=== PATIENT | female | born 1985 | race Caucasian/White ===

== ENCOUNTER 2017-07-17 10:26 | Inpatient (IN) | payer MEDICAID ==
[2017-07-17] MEDS ORDERED: TERBUTALINE SULFATE 1 MG/ML VIAL IV PRN (10:46)
[2017-07-17] MEDS ORDERED: OXYTOCIN 20 UNIT in LR 1,000 ML IV PRN (10:46)
[2017-07-17] MEDS ORDERED: EPSOM SALT 454 GM TP PRN (10:46)
[2017-07-17] MEDS ORDERED: LR 1,000 ML IV PRN (10:46)
[2017-07-17] MEDS ORDERED: OLIVE OIL 118 ML BTL MISC PRN (10:46)
[2017-07-17] MEDS ORDERED: OXYTOCIN 10 UNIT/ML VIAL ONE ×2 (10:58→13:35)
[2017-07-17] MEDS ORDERED: MISOPROSTOL 200 MCG TAB PR ONE (11:00)
[2017-07-17] MEDS ORDERED: LIDOCAINE 1% 300 MG/30 ML SDV ONE (11:00)
[2017-07-17] MEDS ORDERED: MISOPROSTOL 200 MCG TAB ONE (11:11)
--- NOTE | 2017-07-17 11:37 | OBDEL ---
Info Type: Vaginal Presentation at Delivery: Vertex L&D Analgesia/Anesthesia Type: Local GBS+: No - Hospital Course Intrapartum: Began gumaro regularly. Srom clear fluid 1048. pp hemorrage 600cc cytotec 800mcg. pitocin 10mu im. Iv begun after delivery 20mu . 07/17/17 11:34 Indications for Delivery: Spontaneous Labor, SROM Vaginal Delivery - Delivery Provider Delivery Physician/CNM: Lyubov Demarco Proctoring Provider: Nimo Rizvi - Labor and Delivery Onset of Contractions Date: 07/17/17 Onset of Contractions Time: 09:00 Onset of Contractions Type: Spontaneous Rupture of Membranes Date: 07/17/17 Rupture of Membranes Time: 10:48 Rupture of Membranes Type: Spontaneous Amniotic Fluid Color: Clear Dilation Complete Date: 07/17/17 Dilation Complete Time: 10:40 Placenta Delivery Date: 07/17/17 Placenta Delivery Time: 11:08 Total Hours of Labor: 2 Laceration: 1st Degree Repair: 3-0, Vicryl Vaginal Sponge Count Correct: Yes Vaginal Needle Count Correct: Yes Vaginal Sweep Performed: Yes EBL: 600 Delivery Events: None, Post Hemorrhage Data Farooq Delivery Date: 07/17/17 Delivery Time: 10:53 KEY: 07/21/17 Gestational Age: 39 week(s) and 3 day(s) Sex of Infant: Female Score (1 Min): 8 Score (5 Min): 9 ICD10 Worksheet Patient Problems: Problems Problem Status Onset Normal vaginal delivery Acute - ICD10 Problem Qualifiers (1) Normal vaginal delivery
[2017-07-17] MEDS: IBUPROFEN 600 MG TAB PO PRN ×3 (11:40→23:18)
[2017-07-17] MEDS ORDERED: HYDROCORTISONE 0.5% CREAM TP PRN (11:41)
[2017-07-17] MEDS ORDERED: HYDROCODONE/APAP 5/325 TAB PO PRN (11:41)
[2017-07-17] MEDS ORDERED: ACETAMINOPHEN 325 MG TAB PO PRN (11:41)
[2017-07-17] MEDS ORDERED: SIMETHICONE 80 MG TAB CHEW PO PRN (11:41)
[2017-07-17] MEDS ORDERED: DOCUSATE SODIUM 100 MG CAP PO PRN (11:41)
[2017-07-17 11:43] LABS: % IMMATURE GRANULYOCYTES 0.9 % (0.0-1.1); ABSOLUTE IMMATURE GRANULOCYTES 0.09 10^3/uL (0.00-0.10); ADD DIFF? NO; ADD MORPH? NO; ADD SCAN? NO; ATYPICAL LYMPHOCYTE FLAG 0 (0-99); FRAGMENT RBC FLAG 0 (0-99); HEMATOCRIT 39.1 % (38.0-47.0); HEMOGLOBIN 13.9 g/dL (12.6-16.3); LEFT SHIFT FLG 0 (0-99); LIPEMIA HEMOLYSIS FLAG 90 (0-99); MEAN CELL HEMOGLOBIN 31.2 pg (27.9-34.1); MEAN CELL HEMOGLOBIN CONCENTR. 35.5 g/dL (32.4-36.7); MEAN CELL VOLUME 87.7 fL (81.5-99.8); MEAN PLATELET VOLUME 11.4 fL (8.7-11.7); PLATELET CLUMPS FLAG 20 (0-99); PLATELET COUNT 203 10^3/uL (150-400); RED BLOOD CELL COUNT 4.46 10^6/uL (4.18-5.33); RED CELL DISTRIBUTION WIDTH 12.6 % (11.5-15.2)
--- NOTE | 2017-07-17 12:14 | GHP ---
[f rep st] HISTORY AND PHYSICAL DATE OF ADMISSION: 07/17/2017 HISTORY OF PRESENT ILLNESS: The patient is a 31-year-old, 3, para 1, with an EDC of 07/21/20 17 which gives her a gestational age of 39 and 3/7 weeks, who comes in with complaint of regular cont ractions since 9 a.m. On admit, patient was 7-8 cm, 100% effaced, 0 station with bag of ray intact . The patient has been routinely seeing [facility]. She was a 20 week transfer from [facility] [place]. MEDICAL HISTORY: Benign. SURGICAL HISTORY: Noncontributory. GYNECOLOGICAL HISTORY: The patient has had a previous LEEP. PREVIOUS HISTORY: History of PIH with induction of labor at 37 weeks. History of retained placenta. Present , patient is rubella nonimmune. SOCIAL HISTORY: Patient is to [place]. One child at home. Denies drug use. Denies tobacco u se. MEDS: Taking vitamins with DHA. ALLERGIES: NKDA. LABS: Patient is O positive. Antibody negative. RPR is nonreactive. Rubella is nonimmune. Hepati tis is negative. HIV is negative. PHYSICAL EXAMINATION: GENERAL: Patient is awake, alert, oriented x3. LUNGS: Clear bilaterally. A BDOMEN: Bowel sounds are positive in all 4 quadrants. EXTREMITIES: DTRs are 1+ bilaterally. No cl onus bilaterally Homans' sign is negative bilaterally. PLAN: 1. GBS is negative. 2. Spontaneous rupture of membranes on entrance into the room with clear fluid. 3. Expectant management of labor at patient's request. Has requested no IV since patient was going so fast, complied. All other labs were within normal limits. Initial hematocrit was 39.1. /[id number]/MODL
[2017-07-17 12:20] LABS: ALANINE AMINOTRANSFERASE 26 IU/L (9-52); ASPARTATE AMINOTRANSFERASE 21 IU/L (14-46); BILIRUBIN,TOTAL 0.5 mg/dL (0.1-1.4); BILIRUBIN-CONJUGATED 0.1 mg/dL (0.0-0.5); BILIRUBIN-UNCONJUGATED 0.4 mg/dL (0.0-1.1); CREATININE 0.9 mg/dL (0.6-1.0); GLOMERULAR FILTRATION RATE > 60; LACTATE DEHYDROGENASE 559 IU/L (313-618); URIC ACID 6.4 mg/dL (2.5-6.8)
[2017-07-17] MEDS ORDERED: OXYTOCIN 20 UNIT in LR 1,000 ML IV SCH (14:00)
--- NOTE | 2017-07-17 14:17 | SOAPPROG ---
SOAP Progress Note Assessment/Plan: Assessment:total bleeding since delivery 1200cc placenta sent to path for possible abruption. Consult with dr. Rizvi hold methergine po bimanual again from 900 cc loss to 1200cc loss with second bimanual antibiotic ancef 2 gms x 1 dose now iv #2 second bag of pitocin at 125cc /hour with 20u pitocin Plan:observe 07/17/17 14:12 Subjective: Continued bleeding after delivery. 300cc more per nurse. Weighed. Denies dizziness. Feeling ok. Objective: Laboratory Results 07/17/17 11:20 07/17/17 11:20 ICD10 Worksheet Patient Problems: Problems Problem Status Onset Normal vaginal delivery Acute - ICD10 Problem Qualifiers (1) Normal vaginal delivery
[2017-07-17] MEDS ORDERED: ceFAZolin 2 GM/DEXTROSE 100 ML IV ONE (14:18)
[2017-07-17] MEDS ORDERED: fentaNYL 100 MCG/2 ML INJ IVP ONE ×2 (14:41→17:00)
[2017-07-17] MEDS ORDERED: fentaNYL 100 MCG/2 ML INJ ONE (14:42)
[2017-07-17] MEDS ORDERED: METHYLERGONOVINE MAL 0.2 MG/ML INJ ONE (14:59)
[2017-07-17] MEDS ORDERED: METHYLERGONOVINE MAL 0.2 MG/ML INJ IM ONE (15:00)
--- NOTE | 2017-07-17 15:15 | SOAPPROG ---
SOAP Progress Note Assessment/Plan: Assessment: s/p with PP bld and retained POCs Plan: s/p PP DnC for retained tissue. jacquie with fentenyl....total EBL 1500ml and pt tachy with mild nausea. 07/17/17 15:11 Subjective: Pt happy with baby and has been BF but starting to get light headed - better with lying down, much better with Fentenyl. Jacquie currettage well. Objective: Laboratory Results 07/17/17 11:20 07/17/17 11:20 PP DnC pt given 50mcg of Fen IV push and is receiving IV pitocin. B/P 110s/70s and dropped to 80s/50s after procedure. On ultrasound, the upper endometrium appears empty down to ABDOULAYE - no obvious RPOCs. Manual exploration reveals clots in ABDOULAYE and vaginal vault - approx 300ml. currettage with Philip's currette and no tissue obtained up high but clots removed in ABDOULAYE. small piece of placental tissue obtained manually out of cervix. Following this, pt had small flow of blood. Pt is feeling better after IV fluids and B/P 112/65 and pulse 86. ICD10 Worksheet Patient Problems: Problems Problem Status Onset Normal vaginal delivery Acute Retained placenta parts or membranes, condition Acute S/P dilation and curettage Acute - ICD10 Problem Qualifiers (1) Retained placenta parts or membranes, condition (2) S/P dilation and curettage
[2017-07-17] MEDS ORDERED: METHYLERGONOVINE MAL 0.2 MG TAB PO SCH (18:00)
[2017-07-17] MEDS: METHYLERGONOVINE MAL 0.2 MG TAB PO SCH ×2 (18:28→21:37)
--- NOTE | 2017-07-17 18:33 | OBPP ---
Progress Note Assessment/Plan: Assessment:total bleeding since delivery 1600cc reassessed for trauma negative no need for further repair clots dc'd another 100cc 1h later reassessment scant bleeding patient able to sit pain reduced after ibuprofen changed methergine po from q6h to q4h 0.2mg Plan:continue to observe 07/17/17 14:12 07/17/17 18:29 Objective: 07/17/17 11:20 07/17/17 11:20 Patient ABO/Rh O POSITIVE 07/17/17 11:20 Uric Acid 6.4 mg/dL (2.5-6.8) 07/17/17 11:20 Total Bilirubin 0.5 mg/dL (0.1-1.4) 07/17/17 11:20 Conjugated Bilirubin 0.1 mg/dL (0.0-0.5) 07/17/17 11:20 Unconjugated Bilirubin 0.4 mg/dL (0.0-1.1) 07/17/17 11:20 AST 21 IU/L (14-46) 07/17/17 11:20 ALT 26 IU/L (9-52) 07/17/17 11:20 Lactate Dehydrogenase 559 IU/L (313-618) 07/17/17 11:20 Uterine Position/Fundal Height: Umbilicus -2 Uterine Tone: Firm Physical Exam - Physical Exam General Appearance: WD/WN, alert, no apparent distress Respiratory: chest non-tender, lungs clear, normal breath sounds Cardiac/Chest: regular rate, rhythm, tachycardia Abdomen: normal bowel sounds Extremities: normal range of motion, Adrianna's sign (negative bilaterally) DTR- Lower Extremities: Knee (R): 1+, Knee (L): 1+ (no clonus) Skin: normal color, warm/dry Neuro/Psych: no motor/sensory deficits, alert, normal mood/affect, oriented x 3
[2017-07-18] MEDS: METHYLERGONOVINE MAL 0.2 MG TAB PO SCH ×5 (02:15→18:10)
[2017-07-18] MEDS: IBUPROFEN 600 MG TAB PO PRN ×4 (05:48→23:40)
[2017-07-18 06:16] LABS: % IMMATURE GRANULYOCYTES 0.6 % (0.0-1.1); ABSOLUTE IMMATURE GRANULOCYTES 0.08 10^3/uL (0.00-0.10); ADD DIFF? NO; ADD MORPH? NO; ADD SCAN? NO; ATYPICAL LYMPHOCYTE FLAG 10 (0-99); FRAGMENT RBC FLAG 0 (0-99); HEMATOCRIT 21.1 % (38.0-47.0); HEMOGLOBIN 7.5 g/dL (12.6-16.3); LEFT SHIFT FLG 0 (0-99); LIPEMIA HEMOLYSIS FLAG 90 (0-99); MEAN CELL HEMOGLOBIN 31.5 pg (27.9-34.1); MEAN CELL HEMOGLOBIN CONCENTR. 35.5 g/dL (32.4-36.7); MEAN CELL VOLUME 88.7 fL (81.5-99.8); MEAN PLATELET VOLUME 10.4 fL (8.7-11.7); PLATELET CLUMPS FLAG 10 (0-99); PLATELET COUNT 123 10^3/uL (150-400); RED BLOOD CELL COUNT 2.38 10^6/uL (4.18-5.33); RED CELL DISTRIBUTION WIDTH 12.7 % (11.5-15.2)
--- NOTE | 2017-07-18 17:52 | OBPP ---
Progress Note Assessment/Plan: Assessment: 31-year-old WF PPD#1 s/p c/b PPH. Doing well overall. Anemic, but not symptomatic. Plan: 1. Routine PP care. 2. Anemia: monitor symptoms and bleeding closely, start iron supplementation. 3. Dispo: anticipate DC home within 24-48 hours. 07/18/17 17:49 Subjective/ Course: 07/18/17 17:50 Patient is ambulating and performing all normal activities without significant symptoms, faintness or weakness. She reports minimal vaginal bleeding. She is . She denies significant cramping. Objective: 07/18/17 06:00 07/17/17 11:20 Patient ABO/Rh O POSITIVE 07/17/17 11:20 Uric Acid 6.4 mg/dL (2.5-6.8) 07/17/17 11:20 Total Bilirubin 0.5 mg/dL (0.1-1.4) 07/17/17 11:20 Conjugated Bilirubin 0.1 mg/dL (0.0-0.5) 07/17/17 11:20 Unconjugated Bilirubin 0.4 mg/dL (0.0-1.1) 07/17/17 11:20 AST 21 IU/L (14-46) 07/17/17 11:20 ALT 26 IU/L (9-52) 07/17/17 11:20 Lactate Dehydrogenase 559 IU/L (313-618) 07/17/17 11:20 Temp Pulse Resp BP Pulse Ox 36.7 C 101 H 16 118/79 99 07/18/17 16:33 07/18/17 16:33 07/18/17 16:33 07/18/17 16:33 07/18/17 16:33 Uterine Position/Fundal Height: Umbilicus -2 Uterine Tone: Firm
[2017-07-18] MEDS: IRON POLYSAC/IRON HEME 28 MG TAB PO SCH (19:59)
[2017-07-18 20:39] VITALS: TEMP 98.2; O2SAT 96
[2017-07-19] MEDS: IBUPROFEN 600 MG TAB PO PRN ×2 (05:43→11:39)
[2017-07-19] MEDS: IRON POLYSAC/IRON HEME 28 MG TAB PO SCH (08:40)
[2017-07-19 09:32] VITALS: BP 119/72; PULSE 96; RESP 18
[2017-07-19] MEDS ORDERED: MEASLES,MUMPS&RUBELLA VACC/PF 0.5 ML VIAL SC ONE (10:37)
--- NOTE | 2017-07-19 10:40 | OBPP ---
Progress Note Assessment/Plan: Assessment: 1) s/p PPD #2 - pt is stable 2) Anemia, s/p PPH - pt is stable Plan: Plan for d/c home Instructions reviewed with pt No Rx Cont PNV Start iron/colace Pelvic rest RTC in 4 and 6 weeks for pp check 07/19/17 10:37 Subjective/ Course: 07/18/17 17:50 Patient is ambulating and performing all normal activities without significant symptoms, faintness or weakness. She reports minimal vaginal bleeding. She is . She denies significant cramping. 07/19/17 10:38 Pt seen and examined. Doing well with no complaints. Minimal cramping. Mod lochia. Pt is OOB, jacquie reg diet, voiding and BM x1. BF without difficulty. Objective: 07/18/17 06:00 07/17/17 11:20 Patient ABO/Rh O POSITIVE 07/17/17 11:20 Uric Acid 6.4 mg/dL (2.5-6.8) 07/17/17 11:20 Total Bilirubin 0.5 mg/dL (0.1-1.4) 07/17/17 11:20 Conjugated Bilirubin 0.1 mg/dL (0.0-0.5) 07/17/17 11:20 Unconjugated Bilirubin 0.4 mg/dL (0.0-1.1) 07/17/17 11:20 AST 21 IU/L (14-46) 07/17/17 11:20 ALT 26 IU/L (9-52) 07/17/17 11:20 Lactate Dehydrogenase 559 IU/L (313-618) 07/17/17 11:20 Temp Pulse Resp BP Pulse Ox 36.8 C 96 18 119/72 96 07/19/17 09:15 07/19/17 09:15 07/19/17 09:15 07/19/17 09:15 07/19/17 09:15 Uterine Position/Fundal Height: At Umbilicus Uterine Tone: Firm Physical Exam - Physical Exam Respiratory: lungs clear, normal breath sounds Cardiac/Chest: regular rate, rhythm Abdomen: normal bowel sounds, non-tender, soft, flatus (+) Extremities: non-tender, normal inspection Skin: normal color, warm/dry Neuro/Psych: alert, normal mood/affect, oriented x 3
--- NOTE | 2017-07-19 10:41 | OBGCSDC ---
General Delivery Information - General Info : 3 Para: 2 Abortions: 1 Type: Vaginal L&D Analgesia/Anesthesia Type: IV Narcotics, Local Admission Date: 07/17/17 Labs: Patient ABO/Rh O POSITIVE 07/17/17 11:20 Hct 21.1 % (38.0-47.0) L D 07/18/17 06:00 - Hospital Course Intrapartum: Began gumaro regularly. Srom clear fluid 1048. pp hemorrage 600cc cytotec 800mcg. pitocin 10mu im. Iv begun after delivery 20mu . 07/17/17 11:34 : 07/18/17 17:50 Patient is ambulating and performing all normal activities without significant symptoms, faintness or weakness. She reports minimal vaginal bleeding. She is . She denies significant cramping. 07/19/17 10:38 Pt seen and examined. Doing well with no complaints. Minimal cramping. Mod lochia. Pt is OOB, jacquie reg diet, voiding and BM x1. BF without difficulty. Vaginal - Delivery Provider Delivery Physician/CNM: Lyubov Demarco - Diagnosis Labor: Spontaneous Rupture of Membranes Type: Spontaneous Amniotic Fluid Color: Clear Laceration: 1st Degree Repair: 3-0, Vicryl Delivery Events: None, Post Hemorrhage - Delivery EBL: 600 Data Farooq Delivery Date: 07/17/17 Delivery Time: 10:53 KEY: 07/21/17 Gestational Age: 39 week(s) and 5 day(s) Sex of : Female Weight (gm): 2727 kg Score (1 Min): 7 Score (5 Min): 8 Discharge Information - Discharge Information Condition: Good Instruction/Follow Up: Four Weeks, Six Weeks
== END 2017-07-19 12:30 | disposition home or self-care (01) | DRG 774 ==
LOC: FLD 10:26 → FOB 07-18 08:03
PROVIDERS: ADMIT Advanced Practice Midwife; ATTEND Advanced Practice Midwife
PROC: 10E0XZZ Delivery of Products of Conception, External Approach (ICD-10-PCS; principal; 2017-07-17)
PROC: 0HQ9XZZ Repair Perineum Skin, External Approach (ICD-10-PCS; principal; 2017-07-17)
DX: O72.1 Other immediate postpartum hemorrhage (principal); Z37.0 Single live birth; Z3A.39 39 weeks gestation of pregnancy; O70.0 First degree perineal laceration during delivery
CPT/HCPCS: J0690; J2210; J3010